=== PATIENT | male | born 2000 | race African-American/Black ===

== ENCOUNTER 2019-11-05 17:52 | Emergency (ER) | payer MEDICAID, OTHER ==
[~2019-11-05] VITALS: Ht 180.3 cm; Wt 79.4 kg
[2019-11-05 18:35] LABS: Urine Bacteria NONE SEEN /hpf (None Seen); Urine Blood Negative /uL (Negative); Urine Mucus FEW (None Seen); Urine Specific Gravity 1.032 (1.001-1.035); Urine WBC 3 /hpf (0 - 3)
[2019-11-05] MEDS ORDERED: cefTRIAXone SOD 1,000 MG VL IM ONE (22:45)
[2019-11-05 23:00] VITALS: BP 124/79
== END 2019-11-06 | disposition home or self-care (01) ==
LOC: ER 17:54
DX: N50.811 Right testicular pain (principal); L73.9 Follicular disorder, unspecified
CPT/HCPCS: 76870; 81001; 96372; 99284; J0696